=== PATIENT | female | born 1990 | race Asian ===

== ENCOUNTER 2024-01-13 13:33 | Emergency (ER) | payer OTHER ==
[2024-01-13 13:54] LABS: APPEARANCE,URINE SLT CLOUDY; BILIRUBIN,URINE NEGATIVE (NEGATIVE); COLOR,URINE YELLOW; GLUCOSE,URINE NEGATIVE (NEGATIVE); KETONES,URINE NEGATIVE (NEGATIVE); LEUKOCYTE ESTERASE,URINE TRACE (NEGATIVE); NITRITE,URINE NEGATIVE (NEGATIVE); OCCULT BLOOD,URINE NEGATIVE (NEGATIVE); PROTEIN,URINE NEGATIVE (NEGATIVE); UROBILINOGEN,URINE 0.2 EU/dL (<2.0)
[2024-01-13 14:02] LABS: BACTERIA,URINE 2+ (NEGATIVE); EPITHELIAL CELLS,URINE MODERATE (NONE-FEW); MUCUS,URINE LIGHT (NONE-MOD); RBC,URINE 0-1 (0-2/HPF); WBC,URINE 0-1 (0-5/HPF)
[2024-01-13 14:16] LABS: BASOPHILS ABSOLUTE AUTO 0.06 K/uL (0.00-0.20); EOSINOPHILS ABSOLUTE AUTO 0.15 K/uL (0.00-0.45); EOSINOPHILS PERCENT AUTO 2.5 % (0.0-6.0); HEMATOCRIT 41.3 % (37.0-47.0); HEMOGLOBIN 13.3 g/dL (12.0-16.0); IMMATURE GRAN ABSOLUTE AUTO 0.02 K/uL (0.00-0.05); IMMATURE GRAN PERCENT AUTO 0.3 % (0.0-0.4); LYMPHOCYTES ABSOLUTE AUTO 2.15 K/uL (1.00-4.80); LYMPHOCYTES PERCENT AUTO 35.2 % (24.0-44.0); MEAN CORPUSCULAR HEMOGLOBIN 30.3 pg (28.0-32.0); MEAN CORPUSCULAR HGB CONC 32.2 g/dL (32.0-36.0); MEAN CORPUSCULAR VOLUME 94.1 fL (83.0-99.0); MEAN PLATELET VOLUME 9.2 fL (9.4-12.3); MONOCYTES ABSOLUTE AUTO 0.33 K/uL (0.00-0.80); MONOCYTES PERCENT AUTO 5.4 % (0.0-8.0); NEUTROPHILS PERCENT AUTO 55.6 % (41.0-71.0); PLATELET COUNT,PLT 296 K/uL (150-400); RED BLOOD CELL COUNT 4.39 M/uL (4.10-5.30); WHITE BLOOD CELL COUNT,WBC 6.11 K/uL (3.9-11.3)
[2024-01-13] MEDS: Ketorolac 30 MG/ML SDV IVPUSH ONE (14:36)
[2024-01-13] MEDS: Sodium Chloride 0.9% 1,000 ML IV ONE (14:36)
[2024-01-13 14:38] LABS: ALBUMIN 3.8 g/dL (3.4-5.0); BILIRUBIN TOTAL 0.3 mg/dL (0.2-1.0); CALCIUM 8.9 mg/dL (8.5-10.1); CARBON DIOXIDE,CO2 26.5 mmol/L (21.0-32.0); CREATININE 0.8 mg/dL (0.6-1.0); EST CRCL DRUG DOSING (CG) 80.59 mL/min; POTASSIUM,K 3.9 mmol/L (3.5-5.1); PROTEIN TOTAL,TP 7.6 g/dL (6.4-8.2)
[2024-01-13] MEDS: Nitrofurantoin Monohydrate/Macrocrystalline 100 MG Cap PO STA (15:27)
== END 2024-01-13 15:29 | disposition home or self-care (01) ==
LOC: MW.ED 13:33
DX: N39.0 Urinary tract infection, site not specified (principal); Z75.8 Other problems related to medical facilities and other health care
CPT/HCPCS: 36415; 80053; 81001; 81003; 81025; 85025; 87086; 96361; 96374; 99284; A9270; J1885; J7030

== ENCOUNTER 2025-05-18 01:45 | Inpatient (IN) | payer BC ==
[2025-05-18] MEDS ORDERED: Sodium Chloride 0.9% 2.5 ML Syringe FLUSH PRN (02:56)
[2025-05-18] MEDS ORDERED: Water For Irrigation,Sterile 1,000 ML Container IRR PRN (02:56)
[2025-05-18] MEDS ORDERED: Carboprost Tromethamine 250 MCG/1 mL Vial IM PRN (02:56)
[2025-05-18] MEDS ORDERED: Ondansetron 4 MG/2 ML SDV IVPUSH PRN (02:56)
[2025-05-18] MEDS ORDERED: Sodium Chloride 0.9% 10 ML Syringe FLUSH PRN (02:56)
[2025-05-18 03:37] LABS: MEAN PLATELET VOLUME 9.7 fL (9.4-12.3); NRBC ABSOLUTE 0.00 K/uL (0.00-0.02); NRBC PERCENT 0.0 /100WBC (0.0-0.2); PLATELET COUNT,PLT 267 K/uL (150-400); RED BLOOD CELL COUNT 4.00 M/uL (4.10-5.30); WHITE BLOOD CELL COUNT,WBC 13.48 K/uL (3.9-11.3)
[2025-05-18] MEDS: Lactated Ringers 1,000 ML IV SCH (03:41)
[2025-05-18] MEDS: Misoprostol 25 MCG (1/4 of 100 MCG) Tab PO SCH (10:22)
[2025-05-18] MEDS: Butorphanol 1 MG/ML SDV IVPUSH PRN (16:34)
[2025-05-18] MEDS: Oxytocin/0.9 % Sodium Chloride 30 UNIT/500 ML BAG IV SCH (17:15)
[2025-05-18] MEDS ORDERED: Aluminum Hydroxide/Magnesium Hydroxide/Simethicone Susp 30 ML Cup PO PRN (17:43)
[2025-05-18] MEDS ORDERED: Lanolin 100% Cream 7 GM Tube TOP PRN (17:43)
[2025-05-18 18:02] LABS: PH,UMBILICAL ARTERIAL 7.31 (7.18-7.38); PH,UMBILICAL VENOUS 7.37 (7.25-7.45)
[2025-05-18] MEDS: Witch Hazel Medicated Pads 40/Jar TOP PRN (19:15)
[2025-05-18] MEDS: Benzocaine/Menthol 20%-0.5% Spray 78 GM Cannister TOP PRN (19:15)
[2025-05-19 05:59] LABS: BASOPHILS ABSOLUTE AUTO 0.06 K/uL (0.00-0.20); BASOPHILS PERCENT AUTO 0.3 % (0.0-1.0); EOSINOPHILS ABSOLUTE AUTO 0.11 K/uL (0.00-0.45); EOSINOPHILS PERCENT AUTO 0.6 % (0.0-6.0); IMMATURE GRAN ABSOLUTE AUTO 0.13 K/uL (0.00-0.05); IMMATURE GRAN PERCENT AUTO 0.7 % (0.0-0.4); LYMPHOCYTES ABSOLUTE AUTO 2.49 K/uL (1.00-4.80); LYMPHOCYTES PERCENT AUTO 14.2 % (24.0-44.0); MEAN PLATELET VOLUME 9.3 fL (9.4-12.3); MONOCYTES ABSOLUTE AUTO 1.00 K/uL (0.00-0.80); MONOCYTES PERCENT AUTO 5.7 % (0.0-8.0); NEUTROPHILS ABSOLUTE AUTO 13.70 K/uL (1.80-7.70); NEUTROPHILS PERCENT AUTO 78.5 % (41.0-71.0); NRBC ABSOLUTE 0.00 K/uL (0.00-0.02); NRBC PERCENT 0.0 /100WBC (0.0-0.2); PLATELET COUNT,PLT 243 K/uL (150-400); RED BLOOD CELL COUNT 3.76 M/uL (4.10-5.30); WHITE BLOOD CELL COUNT,WBC 17.49 K/uL (3.9-11.3)
[2025-05-20 08:00] LABS: GROUP B STREP BY PCR NEGATIVE (NEGATIVE)
== END 2025-05-20 23:45 | disposition home or self-care (01) | DRG 805 ==
LOC: MW.OBCHECK 01:45 → MW.OB 01:49 → MW.OBCHECK 17:00 → MW.OB 17:00 → OBSVTOIN 17:43 → MW.OB 20:31
PROVIDERS: ADMIT Obstetrics & Gynecology; ATTEND Obstetrics & Gynecology
PROC: 10E0XZZ Delivery of Products of Conception, External Approach (ICD-10-PCS; principal; 2025-05-18)
PROC: 3E0P7VZ Introduction of Hormone into Female Reproductive, Via Natural or Artificial Opening (ICD-10-PCS; 2025-05-18)
PROC: 4A1HXCZ Monitoring of Products of Conception, Cardiac Rate, External Approach (ICD-10-PCS; 2025-05-18)
PROC: 0HQ9XZZ Repair Perineum Skin, External Approach (ICD-10-PCS; 2025-05-18)
DX: O42.013 Preterm premature rupture of membranes, onset of labor within 24 hours of rupture, third trimester (principal); O60.14X0 Preterm labor third trimester with preterm delivery third trimester, not applicable or unspecified; Z37.0 Single live birth; Z3A.36 36 weeks gestation of pregnancy; O70.0 First degree perineal laceration during delivery; J45.909 Unspecified asthma, uncomplicated; O99.52 Diseases of the respiratory system complicating childbirth
CPT/HCPCS: 36415; 59025; 59409; 76805; 76805-26; 82803; 84112; 85025; 85027; 86592; 86850; 86900; 86901; 87653; A9270-GY; J0290; J0595; J2003; J2590; J7120